=== PATIENT | male | born 1940 | race American Indian/Alaskan Native ===

== ENCOUNTER 2020-01-26 18:12 | Emergency (ER) | payer OTHER ==
[~2020-01-26] VITALS: Ht 177.8 cm; Wt 81.6 kg
[2020-01-26 19:06] VITALS: BP 122/92
[2020-01-26] MEDS ORDERED: FLUORESCEIN SOD 1 MG TEST STRIP RIGHTEYE ONE (20:00)
[2020-01-26] MEDS ORDERED: TETRACAINE HCL 0.5% OPTH(EYE) SOLN 4ML RIGHTEYE ONE (20:00)
== END 2020-01-26 21:17 | disposition home or self-care (01) ==
LOC: ER 18:12
DX: H92.01 Otalgia, right ear (principal); H57.11 Ocular pain, right eye; B02.9 Zoster without complications
CPT/HCPCS: 82962